=== PATIENT | female | born 2000 | race Caucasian/White ===

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

== ENCOUNTER 2019-04-18 20:58 | Emergency (ER) | payer BC ==
--- NOTE | 2019-04-18 22:14 | EDM.PDOC ---
ED HPI GENERAL MEDICAL PROBLEM - General Chief Complaint: Skin Complaint Stated Complaint: neck got hot /puffy Time Seen by Provider: 04/18/19 21:47 Source of Information: Reports: Patient, RN Notes Reviewed History Limitations: Reports: No Limitations - History of Present Illness INITIAL COMMENTS - FREE TEXT/NARRATIVE: The patient states that she felt sudden-onset heat and swelling to the back of her neck around 20:30 tonight. She also felt short of breath related to anxiety , which has since resolved. She states that she has had a rash to the back of her neck coming and going for the past week. She has been applying Eucerin cream , which soothes the symptoms for about an hour. She has not sought medical evaluation of the rash. The patient's PCP is in [place], [place]. She will be returning there in about 2 weeks. - Related Data Allergies Allergy/AdvReac Type Severity Reaction Status Date / Time amoxicillin Allergy Cannot Verified 04/18/19 21:13 Remember Penicillins Allergy Cannot Verified 04/18/19 21:13 Remember Home Meds: Home Meds Control. 1 tab PO DAILY 11/07/18 [History] Omeprazole Magnesium [Prilosec Otc] 20 mg PO DAILY 04/18/19 [History] Past Medical History Gastrointestinal History: Reports: GERD, Hiatal Hernia Neurological History: Reports: Migraines (untreated) Psychiatric History: Reports: Anxiety (untreated) Endocrine/Metabolic History: Reports: Obesity/BMI 30+ - Past Surgical History HEENT Surgical History: Reports: Adenoidectomy, Tonsillectomy Social & Family History - Tobacco Use Smoking Status *Q: Never Smoker Second Hand Smoke Exposure: No - Caffeine Use Caffeine Use: Reports: Coffee - Alcohol Use Alcohol Use History: No - Recreational Drug Use Recreational Drug Use: No - Living Situation & Occupation Living situation: Reports: Single, with Significant Other (Boyfriend and his family) Occupation: Unemployed ED ROS GENERAL - Review of Systems Review Of Systems: ROS reveals no pertinent complaints other than HPI. ED EXAM, SKIN/RASH Exam: See Below Exam Limited By: No Limitations General Appearance: Alert, WD/WN, No Apparent Distress Eye Exam: Bilateral Eye: EOMI Ears: Normal External Exam, Hearing Grossly Normal Nose: Normal Inspection Throat/Mouth: Normal Inspection, Normal Lips, Normal Voice, No Airway Compromise Head: Atraumatic, Normocephalic Neck: Other (There is advanced lichenification and hyperpigmentation to the posterior neck, with the hyperpigmentation extending around to the anterior neck , bilaterally.) Course - Vital Signs Last Recorded V/S: Last Vital Signs Temp 36.8 C 04/18/19 21:15 Pulse 112 H 04/18/19 21:15 Resp 16 04/18/19 21:15 BP 180/112 H 04/18/19 21:15 Pulse Ox 99 04/18/19 21:15 - Re-Assessments/Exams Free Text/Narrative Re-Assessment/Exam: 04/18/19 22:08 The patient has both lichenification and hyperpigmentation to the skin of her posterior neck. Both of these changes occurred over a long period of time, likely years, likely secondary to chronic scratching, and do not constitute a new or emergent change. 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 I will refer her to [facility]. Departure - Departure Time of Disposition: 22:09 Disposition: Home, Self-Care 01 Condition: Good Clinical Impression: Lichenification, Hyperpigmentation - Discharge Information *PRESCRIPTION DRUG MONITORING PROGRAM REVIEWED*: Not Applicable *COPY OF PRESCRIPTION DRUG MONITORING REPORT IN PATIENT ZHANNA: Not Applicable Referrals: PCP,None [Primary Care Provider] - Forms: ED Department Discharge Additional Instructions: You were seen in the emergency room for a hot and swollen sensation to the back of your neck. On physical examination, you have both lichenification and hyperpigmentation, likely due to a condition called lichen simplex chronicus, which is a change in the skin that occurs when people scratch an area a lot. For definitive diagnosis and treatment, we recommend that you see a Architectural Coating Finisher. We suggest that you contact the [facility] in the [facility] in [place], at [phone]. In the meantime, it is essential that you not scratch the back of your neck. If it feels especially itchy, we recommend that you apply a cold pack. If any other problems, please do not hesitate to return to the ER.
== END 2019-04-18 22:21 | disposition home or self-care (01) ==
LOC: JD.ED 20:58
DX: L28.0 Lichen simplex chronicus (principal); L81.9 Disorder of pigmentation, unspecified; E66.9 Obesity, unspecified; K21.9 Gastro-esophageal reflux disease without esophagitis; Z98.890 Other specified postprocedural states; Z88.0 Allergy status to penicillin; Z88.1 Allergy status to other antibiotic agents
CPT/HCPCS: 99282; 99283